=== PATIENT | male | born 1950 | race Two or more races ===

== ENCOUNTER 2023-01-29 17:44 | Emergency (ER) | payer MEDICARE, OTHER ==
[~2023-01-29] VITALS: Ht 167.6 cm; Wt 72.6 kg
[2023-01-29 17:52] VITALS: TEMP 101.5
[2023-01-29] MEDS ORDERED: VANCOMYCIN 1 GM in IV D5W 250 ML IV ONE (18:00)
[2023-01-29] MEDS ORDERED: CEFEPIME 1 GM in IV D5W 50 ML IV ONE (18:00)
[2023-01-29] MEDS ORDERED: ACETAMINOPHEN 650 MG/SUPP.RECT RC ONE ×2 (18:00→18:04)
[2023-01-29 18:40] LABS: BASOPHILS # (AUTO) 0.1 K/uL (0.0-0.2); BASOPHILS % (AUTO) 0.7 % (0.0-2.0); EOSINOPHILS % (AUTO) 0.1 % (0.0-6.0); HEMATOCRIT 30 % (39-51); HEMOGLOBIN 9.6 g/dL (13.5-17.5); LYMPHOCYTES # (AUTO) 1.8 K/uL (0.8-4.8); LYMPHOCYTES % (AUTO) 10.4 % (20.0-44.0); MEAN CORPUSCULAR HEMOGLOBIN 30 PG (26.0-33.0); MEAN CORPUSCULAR HGB CONC 32 g/dl (31.0-36.0); MEAN CORPUSCULAR VOLUME 96 fL (80-96); MONOCYTES # (AUTO) 1.2 K/uL (0.1-1.30); MONOCYTES % (AUTO) 6.9 % (2.0-12.0); NEUTROPHILS # (AUTO) 13.8 K/uL (1.8-8.9); NEUTROPHILS % (AUTO) 81.9 % (43.0-81.0); PLATELET COUNT (AUTO) 486 K/uL (150-450); RED BLOOD CELL COUNT(AUTO) 3.17 MIL/uL (4.5-6.0); RED CELL DISTRIBUTION WIDTH 22.8 % (11.5-15.0); WHITE BLOOD COUNT (AUTO) 16.8 K/uL (4.3-11.0)
[2023-01-29 18:56] LABS: CALCIUM, SERUM 9.6 mg/dL (8.5-10.1); CARBON DIOXIDE 24 mmol/L (21-32); CHLORIDE 98 mmol/L (98-107); CREATININE 2.4 mg/dL (0.6-1.3); GLUCOSE 241 mg/dL (74-106); POTASSIUM 4.4 mmol/L (3.5-5.1); SODIUM SERUM 135 mmol/L (136-145); UREA NITROGEN, BLOOD 74 mg/dL (7-18)
[2023-01-29 18:59] LABS: ALANINE AMINOTRANSFERASE 21 U/L (12-78); ALBUMIN 2.7 g/dL (3.4-5.0); ALKALINE PHOSPHATASE 119 U/L (46-116); ASPARTATE AMINOTRANSFERASE 36 U/L (15-37); BILIRUBIN,DIRECT 0.3 mg/dL (0.0-0.2); BILIRUBIN,TOTAL 0.9 mg/dL (0.2-1.0); LACTIC ACID 1.9 mmol/L (0.4-2.0); TOTAL PROTEIN, SERUM 8.5 g/dL (6.4-8.2)
[2023-01-29] MEDS ORDERED: APIX2.5T PO (19:17)
[2023-01-29] MEDS ORDERED: DEXT50DI8 IV (19:17)
[2023-01-29] MEDS ORDERED: CARV25TA2 PO (19:17)
[2023-01-29] MEDS ORDERED: NEOM1OIN15 TP (19:17)
[2023-01-29] MEDS ORDERED: ASCO-352 PO (19:17)
[2023-01-29] MEDS ORDERED: CYAN-51 PO (19:17)
[2023-01-29] MEDS ORDERED: BETH50TA2 PO (19:17)
[2023-01-29] MEDS ORDERED: ACET-868 PO (19:17)
[2023-01-29] MEDS ORDERED: ASPI-1169 PO (19:17)
[2023-01-29] MEDS ORDERED: POVI3780 TP (19:17)
[2023-01-29] MEDS ORDERED: ATOR40TA PO (19:17)
[2023-01-29 19:18] LABS: INR 1.14 (0.91-1.10); PARTIAL THROMBOPLASTIN TIME 37.5 SEC (24.3-34.3)
[2023-01-29] MEDS ORDERED: SACU1TAB7 PO (19:20)
[2023-01-29] MEDS ORDERED: FINA5TAB11 PO (19:20)
[2023-01-29] MEDS ORDERED: HYDR-4075 PO (19:20)
[2023-01-29] MEDS ORDERED: GLUC1KIT IM (19:20)
[2023-01-29] MEDS ORDERED: BISA10SU11 RC (19:20)
[2023-01-29] MEDS ORDERED: FURO-145 PO (19:20)
[2023-01-29] MEDS ORDERED: FERR325T23 PO ×2 (19:20)
[2023-01-29] MEDS ORDERED: GABA-532 PO (19:20)
[2023-01-29] MEDS ORDERED: NA P133E RC (19:20)
[2023-01-29] MEDS ORDERED: FOLI0.4T6 PO (19:20)
[2023-01-29] MEDS ORDERED: [UNRECOGNIZED DRUG - OTHER] PO (19:20)
[2023-01-29] MEDS ORDERED: METF-440 PO (19:25)
[2023-01-29] MEDS ORDERED: ONDA4TAB5 PO (19:25)
[2023-01-29] MEDS ORDERED: PANT40TA2 PO (19:25)
[2023-01-29] MEDS ORDERED: INSU100V7 SQ (19:25)
[2023-01-29] MEDS ORDERED: NICO-762 TD (19:25)
[2023-01-29] MEDS ORDERED: POLY17PO4 PO (19:25)
[2023-01-29] MEDS ORDERED: INSU100V11 SQ ×2 (19:25)
[2023-01-29] MEDS ORDERED: SEMA0.25 SQ (19:25)
[2023-01-29] MEDS ORDERED: MAGN400O6 PO (19:25)
[2023-01-29] MEDS ORDERED: NICO-676 TD (19:25)
[2023-01-29] MEDS ORDERED: MULT-24 PO (19:25)
[2023-01-29] MEDS ORDERED: TIZA4TAB5 PO (19:29)
[2023-01-29] MEDS ORDERED: TAMS-12 PO (19:29)
[2023-01-29] MEDS ORDERED: METO-295 PO (19:29)
[2023-01-29] MEDS ORDERED: ICOS1CAP PO (19:29)
[2023-01-29] MEDS ORDERED: THIA100T74 PO (19:29)
[2023-01-29] MEDS ORDERED: VERQUVO PO (19:29)
[2023-01-29] MEDS ORDERED: ZINC50TA65 PO (19:29)
[2023-01-29] MEDS ORDERED: RANO10003 PO (19:29)
[2023-01-29 19:53] VITALS: BP 132/45; O2SAT 97
[2023-01-29] MEDS ORDERED: IV NS 0.9% 2,000 ML IV ONE (20:00)
[2023-01-29 20:06] LABS: ANISOCYTOSIS 1+; BAND % (MANUAL) 3 % (0.0-5.0); LYMPHOCYTES % (MANUAL) 13 % (16-48); MONOCYTES % (MANUAL) 4 % (0-11.0); NEUTROPHILS % (MANUAL) 80 (42-76); PLATELET ESTIMATE INCREASED
[2023-01-29 20:07] LABS: ROULEAUX 1+
[2023-01-29 20:50] LABS: APPEARANCE,URINE CLOUDY (CLEAR); BILIRUBIN,URINE 1+ (NEGATIVE); BLOOD, URINE 1+ Ery/uL (NEGATIVE); COLOR,URINE YELLOW (YELLOW); KETONES,URINE NEGATIVE (NEGATIVE); LEUKOCYTE ESTERASE ,URINE 3+ (NEGATIVE); NITRITE, URINE POSITIVE (NEGATIVE); PH,URINE 5.5 (5.0-8.0); PROTEIN,URINE 2+ mg/dl (NEGATIVE); UGLUCOSE TRACE mg/dL (NEGATIVE)
[2023-01-29 21:05] LABS: ADD URINE CULTURE YES; BACTERIA,URINE 3+ /HPF (None Seen); SQUAMOUS EPITHELIAL CELL,UR 0-2 /HPF (None Seen); WBC,URINE 81-100 /HPF (0-3)
== END 2023-01-30 00:10 ==
LOC: ER 17:46
DX: D72.829 Elevated white blood cell count, unspecified (principal); R50.9 Fever, unspecified; N40.0 Benign prostatic hyperplasia without lower urinary tract symptoms; E11.9 Type 2 diabetes mellitus without complications; I25.10 Atherosclerotic heart disease of native coronary artery without angina pectoris; Z20.822 Contact with and (suspected) exposure to COVID-19; Z79.899 Other long term (current) drug therapy; Z79.4 Long term (current) use of insulin; Z79.82 Long term (current) use of aspirin
CPT/HCPCS: 99285; 96365; 70450; 71045; 96366; 87426; 96368; 93005; 87804 ×2; 84145; 85025; 80048; 87086; 83605; 80076; 81001; 36415; 84484; 85730; 87040 ×2; 87081; 85007; J3370; J7060; J7030; J0692; C9803